=== PATIENT | female | born 1985 | race American Indian/Alaskan Native ===

== ENCOUNTER 2017-01-21 22:55 | Observation (INO) | payer SELFPAY ==
[2017-01-21 23:41] LABS: Basophils % (Auto) 0.2 % (0.0-1.8); Eosinophils % (Auto) 0.1 % (0.0-4.3); Hematocrit 27.4 % (30.3-42.9); Hemoglobin 8.9 gm/dl (10.1-14.3); Mean Corpuscular HGB Conc 33 % (30-34); Mean Corpuscular Hemoglobin 27 pg (28-32); Mean Corpuscular Volume 84 fl (79-97); Platelet Count 226 K/mm3 (140-440); Red Blood Count 3.25 M/mm3 (3.65-5.03); Red Cell Distribution Width 13.8 % (13.2-15.2)
[2017-01-22 00:02] LABS: Anion Gap 17 mmol/L; BUN/Creatinine Ratio 14.28; Blood Urea Nitrogen 10 mg/dL (7-17); Calcium 7.2 mg/dL (8.4-10.2); Carbon Dioxide 19 mmol/L (22-30); Chloride 109.4 mmol/L (98-107); Glucose 104 mg/dL (65-100); Potassium 4.8 mmol/L (3.6-5.0); Sodium 141 mmol/L (137-145)
--- NOTE | 2017-01-22 00:02 | Emergency Department Report ---
HPI - General Chief Complaint: Vaginal Bleeding Time Seen by Provider: 01/21/17 23:20 - HPI HPI: 31-year-old -English female , who had an elective at 4 weeks , 3 weeks ago. Patient states she continued to have vaginal bleeding after the procedure, her bleeding seems to increase between yesterday and even worse today. Patient complains that she is passing large blood clots, with severe pelvic cramping, to the point where she had a syncopal episode today with numbness by boyfriend. Patient lost consciousness briefly for about 1-5 seconds denied any chest pain, palpitation, focal weakness prior to losing consciousness. She says she felt a wave of weakness coming over her and then she passed out. Patient did not appear postictal upon arrival to ER. Patient was alert, oriented, although weak appearing. Patient has not been taking any medications for symptoms she had the procedure done at [facility] and has not followed up since. Patient denies any fever, chills, night sweats, severe abdominal pain. Patient also denies any flank pain. Patient has not been sexually active since the procedure. ED Past Medical Hx - Past Medical History Previous Medical History?: No - Surgical History Past Surgical History?: Yes Additional Surgical History: - Social History Smoking Status: Never Smoker Substance Use Type: None - Medications Home Medications: Home Medications Medication Instructions Recorded Confirmed Last Taken Type No Known Home Medications [No 01/21/17 01/21/17 Unknown History Reported Home Medications] ED Review of Systems ROS: Stated complaint: VAG BLEED Other details as noted in HPI Constitutional: no symptoms reported Genitourinary: other (vaginal bleeding) Neurological: other (syncope) Physical Exam - Physical Exam Vital Signs: Vital Signs 01/21/17 01/21/17 23:08 23:22 Temperature 98 F Pulse Rate 97 H Respiratory 12 14 Rate Blood Pressure 108/68 [Left] O2 Sat by Pulse 100 100 Oximetry Physical Exam: Physical Exam: - General Limitations: No Limitations General appearance: alert, in no apparent distress - Head Head exam: Present: atraumatic, normocephalic - Eye Eye exam: Present: normal appearance - ENT ENT exam: Present: mucous membranes moist - Neck Neck exam: Present: normal inspection - Respiratory Respiratory exam: Present: normal lung sounds bilaterally. Absent: respiratory distress - Cardiovascular Cardiovascular Exam: Present: normal rhythm, normal rate. Absent: systolic murmur, diastolic murmur, rubs, gallop - GI/Abdominal GI/Abdominal exam: Present: soft, normal bowel sounds -: Vaginal exam showed large clot in the vaginal vault, cervix open to about 1 cm, no cervical tenderness, no discharge - Extremities Exam Extremities exam: Present: normal inspection - Back Exam Back exam: Present: normal inspection - Neurological Exam Neurological exam: Present: alert, oriented X3 - Psychiatric Psychiatric exam: normal affect and mood - Skin Skin exam: Present: warm, dry, intact, normal color. Absent: rash ED Course Vital Signs 01/21/17 01/21/17 23:08 23:22 Temperature 98 F Pulse Rate 97 H Respiratory 12 14 Rate Blood Pressure 108/68 [Left] O2 Sat by Pulse 100 100 Oximetry - Reevaluation(s) Reevaluation #1: 01/22/17 01:41 Spoke with [employer] M[employer] OPERATOR Dr. SANTO, came to ED and evaluated patient and will admit patient. ED Medical Decision Making - Lab Data Result diagrams: 01/21/17 23:24 01/21/17 23:24 Critical care attestation.: If time is entered above; I have spent that time in minutes in the direct care of this critically ill patient, excluding procedure time. ED Disposition Clinical Impression: Retained products of conception Disposition: OP ADMIT IP TO THIS HOSP Is pt being admited?: Yes Does the pt Need Aspirin: No Condition: Stable Referrals: PRIMARY CARE, [Primary Care Provider] - 3-5 Days
[2017-01-22] MEDS ORDERED: METHERGINE IM ONE (00:14)
--- NOTE | 2017-01-22 00:38 | Ultrasound Report ---
FINAL REPORT PROCEDURE: Pelvic ultrasound, transabdominal and transvaginal TECHNIQUE: Real-time transabdominal sonography in multiple planes of the pelvis was performed. The pelvic structures, especially the ovaries were not optimally visualized. Transvaginal sonography was then performed to better evaluate the structures and/or abnormalities described below with image documentation. CPT 02819 and 45889 HISTORY: bleeding post , r/o retained products COMPARISON: No prior studies are available for comparison. FINDINGS: UTERUS Size: 10.3 x 5.3 x 5.8 cm. Endometrial thickness: 21 mm. The endometrial pattern is thickened with complex echogenicity. Retained products are not excluded. Minimal fluid is noted. Orientation: anteverted. Cervix: Normal. Fibroids/masses: None. RIGHT Ovary: 2.5 x 2 x 1.6 cm. Appearance: Normal. LEFT Ovary: 2.4 x 1.5 x 1.9 cm. Appearance: Normal. Pelvic fluid: None. Other: None. IMPRESSION: There is a thickened endometrial pattern at 21 millimeters. There is complex echogenicity with multiple foci of hyper echogenicity, retained products of conception are suspected. Minimal fluid is noted. Both ovaries have a normal size and echogenicity.
--- NOTE | 2017-01-22 00:39 | Ultrasound Report ---
FINAL REPORT PROCEDURE: Pelvic ultrasound, transabdominal and transvaginal TECHNIQUE: Real-time transabdominal sonography in multiple planes of the pelvis was performed. The pelvic structures, especially the ovaries were not optimally visualized. Transvaginal sonography was then performed to better evaluate the structures and/or abnormalities described below with image documentation. CPT 81975 and 46182 HISTORY: bleeding post , r/o retained products COMPARISON: No prior studies are available for comparison. FINDINGS: UTERUS Size: 10.3 x 5.3 x 5.8 cm. Endometrial thickness: 21 mm. The endometrial pattern is thickened with complex echogenicity. Retained products are not excluded. Minimal fluid is noted. Orientation: anteverted. Cervix: Normal. Fibroids/masses: None. RIGHT Ovary: 2.5 x 2 x 1.6 cm. Appearance: Normal. LEFT Ovary: 2.4 x 1.5 x 1.9 cm. Appearance: Normal. Pelvic fluid: None. Other: None. IMPRESSION: There is a thickened endometrial pattern at 21 millimeters. There is complex echogenicity with multiple foci of hyper echogenicity, retained products of conception are suspected. Minimal fluid is noted. Both ovaries have a normal size and echogenicity.
--- NOTE | 2017-01-22 02:01 | History and Physical Report ---
History of Present Illness Date of examination: 01/22/17 Date of admission: 01/22/17 Chief complaint: vaginal bleeding/syncope History of present illness: Pt is a 31 y/o that presents to the emergency room complaining of heavy vaginal bleeding and passage of blood clots that started on yesterday. Patient states that she is status post a elective termination at 4 weeks gestation. Patient was not aware of last menstrual period and states that she was told she was approximately 4 weeks gestation by the sonogram that was done at the facility where she had the termination. Patient states that termination was done while she was awake and which she describes what seems to be consistent with a procedure which she uterus was evacuated. She states she did take medications in the form of tablets prior to that evacuation procedure. She states that there was not a confirmation of heart tones or normal prior to termination being done. Patient had procedure approximately 3 weeks ago at a facility in [place]. She has been having vaginal bleeding that was consistent with a normal-appearing flow up until yesterday. As per patient she did have a episode which she passed out for approximately 1-5 seconds that was witnessed by her boyfriend. Sonogram today shows a thickened endometrium and differential includes possible retained products of conception. There are no adnexal masses that were noted on the sonogram today. While in the emergency room patient did receive Methergine IM and was noted to have a significant decrease in amount of bleeding. Patient denies any chest pain, palpitations, or feeling faint or dizzy at this time. Patient to be admitted for observation and repeat Quant as well as serial H&H. H&H on admission was 8.9 and 27.4. 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: denies: abnormal PAP smear Social history: no significant social history Medications and Allergies Allergies Allergy/AdvReac Type Severity Reaction Status Date / Time No Known Allergies Allergy Unverified 01/21/17 23:06 Home Medications Medication Instructions Recorded Confirmed Last Taken Type No Known Home Medications [No 01/21/17 01/21/17 Unknown History Reported Home Medications] Review of Systems All systems: negative - Vital Signs Vital signs: Vital Signs Resp Pulse Ox 12 100 01/21/17 23:08 01/21/17 23:08 Temp Pulse Resp BP Pulse Ox 98 F 95 H 12 102/63 99 01/21/17 23:22 01/22/17 01:16 01/22/17 01:16 01/22/17 01:16 01/22/17 01:16 - Physical Exam Breasts: Positive: deferred Abdomen: Positive: normal appearance, soft. Negative: distention, tenderness, guarding Genitourinary (Female): Positive: normal external genitalia, normal perenium Vulva: both: normal Vagina: Positive: normal moisture, other (small clots removed) Cervix: Positive: other (appears about 1cm dilated with small clots removed. There is no active bleeding at this time) Extremities: Positive: normal Results Result Diagrams: 01/21/17 23:24 01/21/17 23:24 Abnormal lab results 01/21/17 01/21/17 01/21/17 Range/Units 23:24 23:24 23:24 RBC 3.25 L (3.65-5.03) M/mm3 Hgb 8.9 L (10.1-14.3) gm/dl Hct 27.4 L (30.3-42.9) % MCH 27 L (28-32) pg Clay % (Auto) 8.5 H (0.0-7.3) % Lymph # 1.0 L (1.2-5.4) K/mm3 Seg Neutrophils % 77.6 H (40.0-70.0) % Chloride 109.4 H (98-107) mmol/L Carbon Dioxide 19 L (22-30) mmol/L Glucose 104 H (65-100) mg/dL Calcium 7.2 L (8.4-10.2) mg/dL HCG, Quant 1583 H (0-4) mIU/mL All other labs normal. Assessment and Plan - Patient Problems (1) Elective Current Visit: Yes Status: Acute Plan to address problem: -Pt now stable with minimal bleeding. Findings on sono likely c/w being s/p procedure and now having vaginal bleeding. -repeat h/h and quant -con't methergine as it has greatly reduced her bleeding -admit for 23 hr obs -start antibx
[2017-01-22] MEDS ORDERED: MILK OF MAGNESIA PO PRN (02:08)
[2017-01-22] MEDS ORDERED: ZOFRAN IV PRN (02:08)
[2017-01-22] MEDS ORDERED: PHENERGAN PO PRN (02:08)
[2017-01-22] MEDS ORDERED: DULCOLAX PR PRN (02:08)
[2017-01-22] MEDS ORDERED: PHENERGAN PR PRN (02:08)
[2017-01-22] MEDS ORDERED: NORCO 5/325 PO PRN (02:08)
[2017-01-22] MEDS ORDERED: TYLENOL PO PRN (02:08)
[2017-01-22] MEDS ORDERED: BENADRYL PO PRN (02:08)
[2017-01-22] MEDS ORDERED: MOTRIN PO SCH (03:00)
[2017-01-22] MEDS ORDERED: SODIUM CHLORIDE FLUSH SYRINGE 10 ML IV PRN (03:00)
[2017-01-22 05:21] LABS: Bilirubin,Urine NEG (Negative); Blood,Urine LG (Negative); Ketones,Urine 80 mg/dL (Negative); Leukocyte Esterase,Urine NEG (Negative); Mucus,Urine 2+ /HPF; Nitrite,Urine NEG (Negative); RBC,Urine > 182.0 /HPF (0.0-6.0)
[2017-01-22] MEDS ORDERED: METHERGINE PO SCH (06:00)
[2017-01-22] MEDS ORDERED: LEVAQUIN 500MG/100ML 500 MG/100 ML BAG IV SCH (06:00)
[2017-01-22 07:09] LABS: Hematocrit 26.9 % (30.3-42.9); Hemoglobin 8.9 gm/dl (10.1-14.3)
[2017-01-22 09:26] VITALS: BP 100/53
--- NOTE | 2017-01-22 10:06 | Discharge Summary ---
Providers - Providers Date of Admission: 01/22/17 02:08 Attending physician: RACHEL SANTO Primary care physician: [employer] O[employer] Hospitalization Condition: Good Disposition: DC-01 TO HOME OR SELFCARE Core Measure Documentation - Palliative Care Palliative Care/ Comfort Measures: Not Applicable - Core Measures Any of the following diagnoses?: none Exam - Constitutional Vitals: Temp Pulse Resp BP Pulse Ox 98.4 F 76 16 100/53 99 01/22/17 09:20 01/22/17 03:15 01/22/17 09:20 01/22/17 09:20 01/22/17 01:16 General appearance: Present: no acute distress - Respiratory Respiratory effort: normal - Extremities Extremities: no ischemia, No edema - Abdominal General gastrointestinal: Present: soft, non-tender Female genitourinary: Present: other (scant blood on pad) Plan Activity: other (No sex) Weight Bearing Status: Weight Bear as Tolerated Diet: regular Follow up with: MATILDE IBRAHIM MD [Staff Physician] - 7 Days Prescriptions: Ibuprofen [Motrin 800 MG tab] 800 mg PO TID PRN #30 tablet PRN Reason: Pain Methylergonovine [Methergine] 0.2 mg PO QID #4 tablet
[2017-01-23] MEDS ORDERED: BOOSTRIX IM ONE (06:00)
== END 2017-01-22 11:50 | disposition home or self-care (01) ==
LOC: ED 22:55 → OB 01-22 02:08
PROVIDERS: ADMIT Obstetrics & Gynecology; ATTEND Obstetrics & Gynecology
DX: Z33.2 Encounter for elective termination of pregnancy (principal)
CPT/HCPCS: 36415; 76830; 76856; 80048; 81001; 84702; 85014; 85018; 85025; 86850; 86900; 86901; 96365; 96372; 99285; G0378; J1956; J2210